=== PATIENT | male | born 1965 | race African-American/Black ===

== ENCOUNTER 2025-08-06 08:38 | Outpatient (CLI) | payer OTHER ==
[2025-08-06 10:54] LABS: BASO % 0.6 % (0.1-1.2); EOS # 0.21 (0.04-0.54); EOS % 3.0 % (0.7-7.0); LYMPH # 1.41 (1.18-3.74); LYMPH % 20.1 % (19.3-53.1); MEAN PLATELET VOLUME 13.40 fl (9.4-12.4); MONO # 0.60 (0.24-0.82); MONO % 8.6 % (4.7-12.5); NEUT # 4.73 (1.56-6.13); NEUT % 67.4 % (34.0-71.1); RED CELL DISTRIBUTION WIDTH 14.1 % (11.6-14.4)
[2025-08-06 11:24] LABS: ALT/SGPT 29.0 U/L (12-78); AST/SGOT 12.0 U/L (15-37); BILIRUBIN TOTAL 0.36 mg/dL (0.3-1.2); BUN CREA RATIO 9.0 (7.0-25.0); CREATININE SERUM 1.27 mg/dL (0.70-1.30); FE 92.0 ug/dl (65-175); GFR 58.45; GLOBULINA 3.6 G/DL (2.4-3.5); GLUCOSE FASTING 92.0 mg/dL (65-100); LDH 124.0 U/L (87-241); OSMOLALITY SERUM 288.0 MOSM/KG (275-295)
[2025-08-09 09:44] LABS: FOLIC ACID 15.88 ng/ml (4.78-20)
== END 2025-08-06 08:50 | disposition home or self-care (01) ==
LOC: LAB 08:38
PROVIDERS: ATTEND Internal Medicine Hematology & Oncology
DX: D51.3 Other dietary vitamin B12 deficiency anemia (principal); D69.6 Thrombocytopenia, unspecified; N40.1 Benign prostatic hyperplasia with lower urinary tract symptoms; D50.8 Other iron deficiency anemias; R71.8 Other abnormality of red blood cells; R79.9 Abnormal finding of blood chemistry, unspecified; I10 Essential (primary) hypertension; R74.02 Elevation of levels of lactic acid dehydrogenase [LDH]; K76.89 Other specified diseases of liver

== ENCOUNTER → 2025-10-18 06:52 | Outpatient (CLI) | payer OTHER ==
[2025-10-18 08:05] LABS: BASO % 0.6 % (0.1-1.2); EOS # 0.19 (0.04-0.54); EOS % 4.1 % (0.7-7.0); LYMPH # 1.47 (1.18-3.74); LYMPH % 31.7 % (19.3-53.1); MEAN PLATELET VOLUME 13.40 fl (9.4-12.4); MONO # 0.92 (0.24-0.82); NEUT # 2.02 (1.56-6.13); NEUT % 43.6 % (34.0-71.1); RED CELL DISTRIBUTION WIDTH 14.8 % (11.6-14.4)
[2025-10-18 08:21] LABS: MONO % 19.8 % (4.7-12.5)
[2025-10-18 08:35] LABS: INR 0.98
[2025-10-18 09:00] LABS: ALT/SGPT 28.0 U/L (12-78); AST/SGOT 19.0 U/L (15-37); BILIRUBIN TOTAL 0.56 mg/dL (0.3-1.2); BUN CREA RATIO 10.0 (7.0-25.0); CREATININE SERUM 1.47 mg/dL (0.70-1.30); FE 128.0 ug/dl (65-175); GFR 49.37; GLOBULINA 3.4 G/DL (2.4-3.5); GLUCOSE FASTING 94.0 mg/dL (65-100); LDH 115.0 U/L (87-241); OSMOLALITY SERUM 289.0 MOSM/KG (275-295); PROSTATIC SPECIFIC ANTIGEN 0.84 NG/ML (0.010-4.00)
[2025-10-18 09:07] LABS: COL EPI 104 SECONDS (82-175)
[2025-10-18 11:20] LABS: FOLIC ACID 18.94 ng/ml (4.78-20)
== END | disposition home or self-care (01) ==
LOC: LAB 06:52
PROVIDERS: ATTEND Internal Medicine Hematology & Oncology
DX: D51.3 Other dietary vitamin B12 deficiency anemia (principal); D69.6 Thrombocytopenia, unspecified; N40.1 Benign prostatic hyperplasia with lower urinary tract symptoms; D51.0 Vitamin B12 deficiency anemia due to intrinsic factor deficiency; R97.0 Elevated carcinoembryonic antigen [CEA]; D68.8 Other specified coagulation defects; D50.8 Other iron deficiency anemias; R79.9 Abnormal finding of blood chemistry, unspecified; I10 Essential (primary) hypertension; R74.02 Elevation of levels of lactic acid dehydrogenase [LDH]; K76.89 Other specified diseases of liver